=== PATIENT | female | born 1975 | race Caucasian/White ===

== ENCOUNTER 2022-07-11 09:34 | Day surgery (SDC) | payer BC ==
[~2022-07-11] VITALS: Ht 157.5 cm; Wt 64.4 kg
[~2022-07-11 09:34] MED LIST: COLACE 100100 MG/CAP PO; COLACE50 MG PO; ELITE MAGNESIUM1 TAB PO; MOTRIN 600600 MG/TAB PO; MOTRIN 800800 MG/TAB PO; PERCOCET 325 MG1 TA2 PO; PHILLIPS'311 MG PO; PRENATAL1 TA1 PO; PRENATAL1 TA7 PO
[2022-07-11 10:07] VITALS: BP 117/81; PULSE 66; TEMP 98.2
[2022-07-11] MEDS ORDERED: COMPLETE MULTI1 TAB PO (10:13)
[2022-07-11] MEDS ORDERED: CALCIUM 600MG+D1 TAB PO (10:13)
[2022-07-11] MEDS ORDERED: NATURAL MAGNES200 MG PO (10:13)
[2022-07-11 11:46] VITALS: BP 111/80; PULSE 66; TEMP 97
[2022-07-11 12:00] VITALS: BP 123/88; PULSE 62
== END 2022-07-11 12:25 | disposition home or self-care (01) ==
LOC: SDCO 09:34
DX: Z12.11 Encounter for screening for malignant neoplasm of colon (principal); K64.4 Residual hemorrhoidal skin tags
CPT/HCPCS: J2704; J7120